=== PATIENT | female | born 1950 | race Caucasian/White ===

== ENCOUNTER 2019-03-17 09:03 | Emergency (ER) | payer MEDICARE, OTHER ==
--- OUTSIDE RECORDS SUMMARY | 2019-03-17 09:15 | XMS REPORT | Summary of Care ---
:1950 Author Organization [facility] Address [address] [facility] [address] [place] [address] Care Team Providers Name Role Phone Candace Beck Primary Care Provider Reason for Visit Reason Comments Injection flu Physical JENNIFER, mammo 01-11-19, dexa 04-11-13, colonoscopy 5 years ago, hx IBS. Encounter Details Date Type Department Care Team Description 02/08/2019 Office Visit [place] [facility] Candace Beck MD Routine general medical examination at a health care facility (Primary Dx); Medicine [address] Osteoporosis, unspecified osteoporosis type, unspecified pathological fracture presence [address] [place], [place] [id number] [place] [address] [phone] Allergies Active Allergy Reactions Severity Noted Date Comments Compazine Dermatologic Reaction 11/16/2014 rash documented as of this encounter (statuses as of 02/08/2019) Medications Medication Sig Dispensed Refills Start Date End Date Status escitalopram (LEXAPRO) Take 3 Tabs by 270 Tab 3 04/29/2018 Active 5 MG Oral mouth DAILY. TabIndications: Depression, unspecified depression type levothyroxine Take 1 Tab by 36 Tab 3 04/30/2018 Active (SYNTHROID) 125 MCG mouth EVERY MON, Oral Tab WED & THURSDAY. meclizine (ANTIVERT) 25 Take 1 Tab by 30 Tab 0 10/20/2018 Active MG Oral Tab mouth THREE TIMES DAILY NEEDED for dizziness/vertigo . levothyroxine TAKE 1 TABLET BY 45 Tab 3 12/15/2018 Active (SYNTHROID) 150 MCG MOUTH EVERY DAY Oral TabIndications: BEFORE BREAKFAST Other specified hypothyroidism documented as of this encounter (statuses as of 02/08/2019) Active Problems Problem Noted Date History of dysplastic nevus 10/27/2016 History of basal cell carcinoma 10/27/2016 Pain of right hand 06/19/2015 Lipid disorder 12/20/2014 Beni's thyroiditis 11/16/2014 S/P JENNIFER-BSO 11/16/2014 Overview: fibroid History of open sigmoidectomy 11/16/2014 Overview: IBD - documented as of this encounter (statuses as of 02/08/2019) Immunizations Name Administration Dates Next Due Influenza Vaccine 65 Yrs + 02/08/2019 Influenza Vaccine High Dose 02/16/2018, 04/16/2017 PNEUMOCOCCAL POLYSACCHARIDE VACCINE 11/14/2016 Pneumococcal Conjugate(13 Valent) 02/16/2018, 11/16/2014 documented as of this encounter Social History Tobacco Use Types Packs/Day Years Used Date Former Smoker Quit: 12/26/2009 Smokeless Tobacco: Never Used Alcohol Use Drinks/Week oz/Week Comments Yes 0 Standard drinks or equivalent 0.0 rare Sex Assigned at Date Recorded Not on file Job Start Date Occupation Industry Not on file Not on file Not on file Travel History Travel Start Travel End No recent travel history available. documented as of this encounter Last Filed Vital Signs Vital Sign Reading Time Taken Comments Blood Pressure 134/74 02/08/2019 10:04 AM EDT Pulse 71 02/08/2019 10:04 AM EDT Temperature - - Respiratory Rate - - Oxygen Saturation 97% 02/08/2019 10:04 AM EDT Inhaled Oxygen Concentration - - Weight 68.9 kg (152 lb) 02/08/2019 10:04 AM EDT Height 158.8 cm (5' 2.5") 02/08/2019 10:04 AM EDT Body Mass Index 27.36 02/08/2019 10:04 AM EDT documented in this encounter Patient Instructions Patient InstructionsCandace Beck MD - 02/08/2019 10:00 AM EDTHeart healthy lifestyle- Exercise- minimum of 40 min 4 x week- do some thing you like to do; strength and balance training -- Good night sleep - average person needs 8 hr Eat smart- watch cholesterol - dont overdo the carbs Smile!!!! Good spirit makes endorphins and all the rest work and worthwhile documented in this encounter Progress Notes Candace Beck MD - 02/08/2019 10:00 AM EDT PATIENT: Maria Teresa Mac DATE: 02/08/2019 Maria Teresa Mac is a 68-y.o. female presents for routine physical exam and Also , she has additionalcomplaints of 1. Stable weight / blood pressure - 2. Is active- . Patient Active Problem List Diagnosis Beni's thyroiditis S/P JENNIFER-BSO History of open sigmoidectomy Lipid disorder Pain of right hand History of dysplastic nevus History of basal cell carcinoma Exercize yes No BROCK. No cardiopulmonary symptoms as dyspnea, cough. palpitations , or chest pain on exertion. No upper or lower GI complaints as heartburn, abdominal pain, change in bowel habits, blackor bloody stools. No urinary tract symptoms or incontinence. No symptoms as nocturia, discharge No bruising/ bleeding. No neurological complaints as dysphagia, imbalance, vertigo , focal weakness. No insomnia.+ Rested after nights sleep. No depression. Does not stop breathing at night. Current Outpatient Medications Medication Sig escitalopram (LEXAPRO) 5 MG Oral Tab Take 3 Tabs by mouth DAILY. levothyroxine (SYNTHROID) 125 MCG Oral Tab Take 1 Tab by mouth EVERY THU , THU & THURSDAY. levothyroxine (SYNTHROID) 150 MCG Oral Tab TAKE 1 TABLET BY MOUTH EVERY DAY BEFORE BREAKFAST meclizine (ANTIVERT) 25 MG Oral Tab Take 1 Tab by mouth THREE TIMES DAILY NEEDED for dizziness/vertigo. No current facility-administered medications for this visit. Social History Socioeconomic History Marital status: Single Spouse name: Not on file Number of children: Not on file Years of education: Not on file Highest education level: Not on file Occupational History Not on file Social Needs Financial resource strain: Not on file Food insecurity: Worry: Not on file Inability: Not on file Transportation needs: Medical: Not on file Non-medical: Not on file Tobacco Use Smoking status: Former Smoker Last attempt to quit: 12/26/2009 Years since quittin.1 Smokeless tobacco: Never Used Substance and Sexual Activity Alcohol use: Yes Alcohol/week: 0.0 standard drinks Comment: rare Drug use: No Sexual activity: Not on file Lifestyle Physical activity: Days per week: Not on file Minutes per session: Not on file Stress: Not on file Relationships Social connections: Talks on phone: Not on file Gets together: Not on file Attends jew service: Not on file Active member of club or organization: Not on file Attends meetings of clubs or organizations: Not on file Relationship status: Not on file Intimate partner violence: Fear of current or ex partner: Not on file Emotionally abused: Not on file Physically abused: Not on file Forced sexual activity: Not on file Other Topics Concern Not on file Social History Narrative Worked in, 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[employer]" near [facility] ([place], [place]) Here with son and [id number] ; grandchild; Went to [place] Family History Problem Relation Age of Onset Cancer Mother 65 breast ca Breast Cancer Mother Cancer Father Breast Cancer Sister 70 Lab Results Component Value Date NA 141 10/20/2018 K 4.1 10/20/2018 CL 103 10/20/2018 CO2 28 10/20/2018 GLUCOSE 87 10/20/2018 BUN 22 (H) 10/20/2018 CREATININE 0.6 (L) 10/20/2018 CALCIUM 9.7 10/20/2018 TP 7.3 10/20/2018 ALBUMIN 4.3 10/20/2018 AST 33 10/20/2018 ALT 22 10/20/2018 ALK 58 10/20/2018 TBILI 0.3 10/20/2018 EGFR >60 10/20/2018 Lab Results Component Value Date WBC 7.88 10/20/2018 HGB 13.5 10/20/2018 HCT 41.4 10/20/2018 PLAT 315 10/20/2018 OBJECTIVE: BP 134/74 | Pulse 71 | Ht 5' 2.5" (1.588 m) | Wt 152 lb (68.9 kg) | SpO2 97 % | BMI 27.36 kg/m Gen well Heent: ears TM and canals normal eyes Perrl; EOMI oroph-wnl Neck- no JVD,thyromegaly, bruit or lymphademopathy No supraclavicular, axillary or inguinal lymphadenopathy Lungs-clear to auscultation CV RRR no Murmur, gallop or clilck Breasts-no masses or diimpling (examined supine and sitting) Abd. nontender; no organomegaly, abnormal pulsations , bowel sounds normoactive defer to age - Ext-no edema; rash, DP +2 skin- no rashes or suspicious lesions Neuro- intellect intact; CN II.XII intact; U&LE-strength wnl gait nl A/P ICD-9-CM ICD-10-CM 1. Routine general medical examination at a health care facility V70.0 Z00.00 2. Osteoporosis, unspecified osteoporosis type, unspecified pathological fracture presence 733.00 M81.0 XR DEXA SCAN 1 OR MORE SITES Breast self-exam and bone health recommendations were made Chief Complaint Patient presents with Injection flu Physical JENNIFER, mammo 01-11-19, dexa 04-11-13, colonoscopy 5 years ago, hx IBS. Mammo-- up to date Colon- 10 yr DT PAP aged out DEXA Up to date Patient Instructions Heart healthy lifestyle- Exercise- minimum of 40 min 4 x week- do some thing you like to do; strength and balance training -- Good night sleep - average person needs 8 hr Eat smart- watch cholesterol - dont overdo the carbs Smile!!!! Good spirit makes endorphins and all the rest work and worthwhile Author: Candace Beck MD documented in this encounter Plan of Treatment Name Type Priority Associated Diagnoses Order Schedule XR DEXA SCAN 1 OR Imaging Routine Osteoporosis, unspecified 1 Occurrences starting MORE SITES osteoporosis type, 02/08/2019 until unspecified pathological 02/08/2020 fracture presence Health Maintenance Due Date Last Done Comments ZOSTER IMMUNIZATION SERIES 06/29/1999 (1 of 2) MEDICARE ANNUAL WELLNESS 11/17/2015 11/16/2014 VISIT COLONOSCOPY SCREENING 08/25/2018 08/25/2013 INFLUENZA VACCINE (#1) 2018 02/16/2018, 04/16/2017 OSTEOPOROSIS SCREENING 04/27/2019 04/27/2009 DIABETES SCREENING 10/21/2019 10/20/2018, 01/14/2018, 10/23/2016, Additional history exists MAMMOGRAM (SCREENING) 01/12/2020 01/11/2019, 01/05/2018, 01/01/2017, Additional history exists DEPRESSION SCREENING 02/09/2020 02/08/2019 FALL RISK ASSESSMENT 02/09/2020 02/08/2019, 02/08/2019 LIPID DISORDER SCREENING 01/14/2023 01/14/2018, 06/25/2015, 12/13/2014 PNEUMOCOCCAL 65+YRS Completed 02/16/2018, 11/14/2016, 11/16/2014 HPV IMMUNIZATION SERIES Aged Out No longer eligible based on patient's age to complete this topic MENINGOCOCCAL VACCINE IMM Aged Out No longer eligible based on patient's age to complete this topic documented as of this encounter Procedures Procedure Name Priority Date/Time Associated Diagnosis Comments COLONOSCOPY Routine 01/25/2014 documented in this encounter Results COLONOSCOPY (01/25/2014) Pathologist [facility] Performing Organization Address City/State/[facility] Phone Number [facility] [address] [facility] [place] [address] documented in this encounter Visit Diagnoses Diagnosis Routine general medical examination at a health care facility - Primary Osteoporosis, unspecified osteoporosis type, unspecified pathological fracture presence documented in this encounter Insurance Payer Benefit Plan / Subscriber ID Effective Dates Phone Address Type Group UHC MEDICARE [employer] xxxxxxxxx 2016-Present [facility] ADVANTAGE MEDICARE ADVANTAGE Guarantor Name Account Type Relation to Date of Phone Billing Patient Address Maria Teresa Mac Personal/Family 1950 [address] (Home) [place], [place] [phone] [id number] (Work) documented as of this encounter
[2019-03-17] MEDS: Morphine INJ* 2 MG/ML 1 ML SYRINGE (TWO MG - NEW SYRINGE VERSION) IV ONE ×2 (10:15→11:44)
[2019-03-17] MEDS: NS 0.9% 1000 ML** 1,000 ML IV ONE (10:15)
--- NOTE | 2019-03-17 10:26 | ED ---
GI/ HPI - HPI Summary HPI Summary: 68-year-old male presents with left lower quadrant pain for the past day. She denies any nausea vomiting. No decreased appetite. She denies any diarrhea or constipation. Normal bowel movement today that did not change the pain. Does have a history of diverticulitis that required a colon resection. States she has not had issues with diverticulitis in many years. She denies any fevers. No chest pain shortness breath. No urinary symptoms. States she did have this pain a couple weeks ago but it has resolved. Has history of thyroid issues. - History of Current Complaint Chief Complaint: EDAbdPain Time Seen by Provider: 03/17/19 09:44 Stated Complaint: LEFT ABD PAIN Pain Intensity: 6 - Allergy/Home Medications Allergies/Adverse Reactions: Allergies Allergy/AdvReac Type Severity Reaction Status Date / Time prochlorperazine Allergy Rash Verified 03/17/19 12:02 Home Medications: Home Medications Escitalopram * [Lexapro 5 mg (NF)] 5 mg PO TID 03/17/19 [History Confirmed 03/17] PMH/Surg Hx/FS Hx/Imm Hx Endocrine/Hematology History: Reports: Hx Thyroid Disease - ON DAILY SYNTHROID Cardiovascular History: Denies: Hx Hypertension GI History: Reports: Hx Irritable Bowel - Hx- HAD SURGERY 2003, [place], Hx Ulcer - Hx OF.. MILD, NO CURRENT Sx Musculoskeletal History: Reports: Hx Arthritis - KNEES Comment Only: Other Musculoskeletal History - PSUDO GOUT Sensory History: Reports: Hx Contacts or Glasses - GLASSES Opthamlomology History: Reports: Hx Contacts or Glasses - GLASSES Psychiatric History: Reports: Hx Anxiety - ON DAILY MEDS - Cancer History Hx Chemotherapy: No Hx Radiation Therapy: No - Surgical History Surgery Procedure, Year, and Place: [address] [place] [address] [place]ERECTOMY [place]. [place]DECTOMY [place] Hx Anesthesia Reactions: No Infectious Disease History: No Infectious Disease History: Denies: Traveled Outside the [place] in Last 30 Days - Family History Known Family History: Positive: Non-Contributory - Social History Alcohol Use: Daily Alcohol Amount: 1 DRINK/DAILY Substance Use Type: Reports: None Smoking Status (MU): Former Smoker Amount Used/How Often: 1/2 PPD 25 YRS Have You Smoked in the Last Year: No Review of Systems Negative: Fever Negative: Chest Pain Negative: Shortness Of Breath Positive: Abdominal Pain. Negative: Vomiting, Diarrhea, Nausea All Other Systems Reviewed And Are Negative: Yes Physical Exam Triage Information Reviewed: Yes Vital Signs On Initial Exam: Initial Vitals Temp Pulse Resp BP Pulse Ox 97.9 F 83 16 145/91 96 03/17/19 09:04 03/17/19 09:04 03/17/19 09:04 03/17/19 09:04 03/17/19 09:04 Vital Signs Reviewed: Yes Appearance: Positive: Well-Appearing Skin: Positive: Warm, Dry Head/Face: Positive: Normal Head/Face Inspection Eyes: Positive: Normal, Conjunctiva Clear ENT: Positive: Pharynx normal Respiratory/Lung Sounds: Positive: Clear to Auscultation, Breath Sounds Present Cardiovascular: Positive: Normal, RRR Abdomen Description: Positive: Soft, Other: - tenderness in LLQ Bowel Sounds: Positive: Present Musculoskeletal: Positive: Normal Neurological: Positive: Normal Psychiatric: Positive: Normal Procedures - Sedation Patient Received Moderate/Deep Sedation with Procedure: No Diagnostics - Vital Signs Vital Signs Temp Pulse Resp BP Pulse Ox 03/17/19 10:15 16 165/77 03/17/19 09:04 97.9 F 83 16 145/91 96 - Laboratory Result Diagrams: 03/17/19 10:08 03/17/19 10:08 Lab Statement: Any lab studies that have been ordered have been reviewed, and results considered in the medical decision making process. - CT abd CT Interpretation Completed By: Radiologist Summary of CT Findings: IMPRESSION: 1. NO EVIDENCE FOR ACUTE FINDING. 2. HEPATIC STEATOSIS. 3. STATUS POST APPENDECTOMY AND HYSTERECTOMY. Re-Evaluation - Re-Evaluation First Eval Re-Evaluation Time: 11:21 Change: Improved Comment: feeling better but pain returned GIGU Course/Dx - Course Course Of Treatment: 68-year-old male presents with left lower quadrant pain for the past day. She denies any nausea vomiting. No decreased appetite. She denies any diarrhea or constipation. Normal bowel movement today that did not change the pain. Does have a history of diverticulitis that required a colon resection. States she has not had issues with diverticulitis in many years. She denies any fevers. No chest pain shortness breath. No urinary symptoms. States she did have this pain a couple weeks ago but it has resolved. Has history of thyroid issues. On exam tenderness in left lower quadrant. White blood count normal. crp normal. urine likely contaminant and patient denies uti sx at this time. ct abd shows no acute findings. states was bowling the day before pain started and may have pulled a muscle. will have follow up with primary. patient understand and agrees with plan. - Diagnoses Differential Diagnoses - Female: Colitis, Diverticulitis, Urinary Tract Infection Provider Diagnoses: Abdominal pain Discharge ED - Sign-Out/Discharge Documenting (check all that apply): Patient Departure - Discharge Plan Condition: Good Disposition: HOME Patient Education Materials: Acute Abdominal Pain (ED) Referrals: Candace Beck MD [Primary Care Provider] - Additional Instructions: Take Tylenol for pain as needed every 6 hours Follow up with primary within 5 days Return to ED if develop any new or worsening symptoms - Billing Disposition and Condition Condition: GOOD Disposition: Home
[2019-03-17 10:37] LABS: ABS Basophils 0.1 10^3/ul (0-0.2); ABS Eosinophils 0.1 10^3/ul (0-0.6); ABS Lymphocytes 1.3 10^3/ul (1.0-4.8); ABS Monocytes 0.3 10^3/ul (0-0.8); ABS Neutrophils 4.3 10^3/ul (1.5-7.7); Hematocrit 42 % (35-47); Hemoglobin 14.5 g/dL (12.0-16.0); Lymphocyte % 22.1 %; Mean Corpuscular HGB Conc 35 g/dL (31-36); Mean Corpuscular Hemoglobin 30 pg (27-31); Mean Corpuscular Volume 86 fL (80-97); Mean Platelet Volume 7.7 fL (7.4-10.4); Platelet Count 322 10^3/uL (150-450); Red Blood Count 4.86 10^6 /uL (3.70-4.87); Red Cell Distribution Width 13 % (10-15); White Blood Count 6.1 10^3/uL (3.5-10.8)
[2019-03-17 10:39] LABS: Urine Appearance Clear; Urine Bilirubin Negative (Negative); Urine Blood 1+ (Negative); Urine Color Yellow; Urine Glucose Negative (Negative); Urine Ketones Negative (Negative); Urine Nitrite Negative (Negative); Urine Protein Negative (Negative); Urine Specific Gravity 1.008 (1.010-1.030); Urine Urobilinogen Negative (Negative)
[2019-03-17 10:46] LABS: Urine Bacteria Absent (Absent); Urine Red Blood Cell Trace(0-2/hpf) (Absent); Urine Squamous Epithelial Cell Present (Absent); Urine White Blood Cell Trace(0-5/hpf) (Absent)
[2019-03-17 10:48] LABS: ALT 18 U/L (7-52); AST 18 U/L (13-39); Albumin 4.4 g/dL (3.2-5.2); Albumin/Globulin Ratio 1.6 (1-3); Alkaline Phosphatase 55 U/L (34-104); Anion Gap 6 mmol/L (2-11); BUN/Creatinine Ratio 27.4 (8-20); Blood Urea Nitrogen 17 mg/dL (6-24); C Reactive Protein < 1.00 mg/L (<8.01); CO2 Carbon Dioxide 29 mmol/L (22-32); Chloride 104 mmol/L (101-111); EGFR African American 115.5 (>60); EGFR Non-African American 95.4 (>60); Globulin 2.7 g/dL (2-4); Glucose 99 mg/dL (70-100); Potassium 4.6 mmol/L (3.5-5.0); Sodium 139 mmol/L (135-145); Total Protein 7.1 g/dL (6.4-8.9)
[2019-03-17] MEDS: Iohexol 300* (CONTRAST) 10 ML SDV IV ONE (12:42)
[2019-03-17 13:37] VITALS: BP 150/71
== END 2019-03-17 13:30 | disposition home or self-care (01) ==
LOC: ED 09:03
DX: R10.9 Unspecified abdominal pain (principal); E03.9 Hypothyroidism, unspecified; F41.9 Anxiety disorder, unspecified; Z87.891 Personal history of nicotine dependence; Z90.89 Acquired absence of other organs; Z90.710 Acquired absence of both cervix and uterus; Z79.890 Hormone replacement therapy; Z79.899 Other long term (current) drug therapy; Z88.8 Allergy status to other drugs, medicaments and biological substances
CPT/HCPCS: 36415; 74177; 80053; 81003; 81015; 83605; 83690; 85025; 86140; 87086; 96361; 96374; 96376; 99283; J2270; Q9967

== ENCOUNTER 2019-03-24 23:15 | Emergency (ER) | payer MEDICARE ==
[2019-03-24] MEDS ORDERED: Ondansetron INJ* 2 MG/ML VIAL IV ONE (23:49)
[2019-03-24] MEDS ORDERED: Ketorolac INJ* 30 MG/ML 1 ML VIAL IV PUSH ONE (23:49)
[2019-03-24] MEDS ORDERED: NS 0.9% 1000 ML** 1,000 ML IV ONE (23:49)
--- NOTE | 2019-03-25 00:10 | ED ---
Abdominal Pain/Female - HPI Summary HPI Summary: Patient is a 68 y/o F w/ Hx of diverticulitis and colon resection who presents to [facility] with chief complaint of LLQ abdominal pain. She states that she was at [facility] a week ago for similar issues. CT ABD/PEL and bloodwork were done and are reported to have been unremarkable. She followed up with her PCP who started her on a liquid diet. Patient was not started on antibiotics. She is to follow up with PCP tomorrow. Pain has been intermittent since onset and is characterized as a "pinching" and "like there's a big sore in there or something ". No fever, N/V/D, dysuria reported. Patient notes that her pain worsened after Thanksgiving dinner today, 03/24/19. She states that she had some similar pain previously with her diverticulitis but notes that the pain is in a different location. Patient states that she has been taking Tylenol 1000 mg every 4 hours with last dosage at 2200 03/24/19. PSHx of colon resection, appendectomy, and hysterectomy noted. She denies tobacco and substance usage but endorses some alcohol usage. On triage, pain is rated 8/10, nothing is noted to aggravate/alleviate Sx. Home medications and allergies are reviewed. - History of Current Complaint Chief Complaint: EDAbdPain Stated Complaint: ABD PAIN Time Seen by Provider: 03/24/19 23:46 Hx Obtained From: Patient Onset/Duration: Lasting Weeks, Still Present Timing: Weeks Severity Currently: Severe Pain Intensity: 8 Pain Scale Used: 0-10 Numeric Location: Discrete At: LLQ Aggravating Factor(s): Food Associated Signs and Symptoms: Negative: Fever, Urinary Symptoms, Nausea, Vomiting, Diarrhea Allergies/Adverse Reactions: Allergies Allergy/AdvReac Type Severity Reaction Status Date / Time prochlorperazine Allergy Rash Verified 03/24/19 23:20 Home Medications: Home Medications Levothyroxine TAB* [Synthroid TAB*] 125 mcg PO SEE INSTRUCTIONS 03/24/19 [ History Confirmed 03/24/19] PMH/Surg Hx/FS Hx/Imm Hx Endocrine/Hematology History: Reports: Hx Thyroid Disease - ON DAILY SYNTHROID Denies: Hx Diabetes Cardiovascular History: Denies: Hx Hypertension GI History: Reports: Hx Irritable Bowel - Hx- HAD SURGERY 2003, [place], Hx Ulcer - Hx OF.. MILD, NO CURRENT Sx History: Denies: Hx Renal Disease Musculoskeletal History: Reports: Hx Arthritis - KNEES Comment Only: Other Musculoskeletal History - PSUDO GOUT Sensory History: Reports: Hx Contacts or Glasses - GLASSES Opthamlomology History: Reports: Hx Contacts or Glasses - GLASSES Psychiatric History: Reports: Hx Anxiety - ON DAILY MEDS - Cancer History Hx Chemotherapy: No Hx Radiation Therapy: No - Surgical History Surgery Procedure, Year, and Place: [address] [place] [address] [place]STERECTOMY [place]. 1974 APPENDECTOMY [facility] Anesthesia Reactions: No Infectious Disease History: No Infectious Disease History: Denies: Traveled Outside the US in Last 30 Days - Family History Known Family History: Positive: Cardiac Disease Negative: Diabetes - Social History Alcohol Use: Rare Alcohol Amount: 1 DRINK/DAILY Substance Use Type: Reports: None Smoking Status (MU): Former Smoker Amount Used/How Often: 1/2 PPD 25 YRS Have You Smoked in the Last Year: No Review of Systems - ROS Summary Review of Systems Summary: Home Medications Medication Instructions Recorded Confirmed Type Levothyroxine TAB* [Synthroid 150 150 mcg PO SEE INSTRUCTIONS 09/23/13 03/24/19 History MCG TAB*] Escitalopram * [Lexapro 5 mg (NF)] 15 mg PO DAILY 03/17/19 03/24/19 History Levothyroxine TAB* [Synthroid TAB*] 125 mcg PO SEE INSTRUCTIONS 03/24/19 History Negative: Fever Positive: Abdominal Pain. Negative: Vomiting, Diarrhea, Nausea Negative: dysuria All Other Systems Reviewed And Are Negative: Yes Physical Exam - Summary Physical Exam Summary: General: Well-developed, Well-nourished female. No acute distress. HEENT: Normocephalic, Atraumatic. Eyes: Conjuctiva normal, PERRL. Ears: TMs within normal limits. Nares: (-) discharge, (-) erythema. Oropharynx: Clear, mucous membranes moist, (-) exudates. Neck: Soft, FROM, (-) lymphadenopathy, (-) thyromegaly, (-) JVD. Cardiovascular: Normal sinus rhythm, (-) murmur. Lungs: Clear to auscultation bilaterally (-) wheezes, (-) rales, (-) rhonchi. Abdomen: Soft, mild tenderness of left lateral abdomen, non-distended, (-) organomegaly, normal bowel sounds. Back: (-) CVA tenderness Extremities: No edema. Skin: Warm, dry, (-) rash. Neuro: Alert and oriented x3, no focal deficits. Psychiatric: Mood normal, affect normal. Triage Information Reviewed: Yes Vital Signs On Initial Exam: Initial Vitals Temp Pulse Resp BP Pulse Ox 97.0 F 70 18 116/114 98 03/24/19 23:20 03/24/19 23:20 03/24/19 23:20 03/24/19 23:20 03/24/19 23:20 Vital Signs Reviewed: Yes Procedures - Sedation Patient Received Moderate/Deep Sedation with Procedure: No Diagnostics - Vital Signs Vital Signs Temp Pulse Resp BP Pulse Ox 03/24/19 23:30 73 166/124 97 03/24/19 23:20 97.0 F 70 18 116/114 98 - Laboratory Result Diagrams: 03/25/19 00:17 03/25/19 00:17 Lab Statement: Any lab studies that have been ordered have been reviewed, and results considered in the medical decision making process. - CT ABD/PEL CT CT Interpretation Completed By: Radiologist Summary of CT Findings: IMPRESSION: No CT findings to correlate with patient's symptomatology. THIS REPORT WAS REVIEWED BY DR. WILLIAM. Abdominal Pain Fem Course/Dx - Course Course Of Treatment: 68 y/o F presents with abdominal pain for greater than one week. She was seen at [facility] a week ago with no significant findings on workup. She followed up with PCP. Patient did clear fluids diet for two days with no improvement of Sx. She was given toradol and morphine for pain. Workup is essentially negative although non-diagnostic. Patient was discharged to home with PCP follow-up. - Diagnoses Provider Diagnoses: Abdominal pain Discharge ED - Sign-Out/Discharge Documenting (check all that apply): Patient Departure - discharge - Discharge Plan Condition: Stable Disposition: HOME Patient Education Materials: Abdominal Pain (ED) Referrals: Candace Beck MD [Primary Care Provider] - 3 Days Additional Instructions: PLEASE RETURN TO ED FOR ANY NEW OR WORSENING SYMPTOMS. PLEASE FOLLOW UP WITH YOUR PRIMARY CARE PHYSICIAN WITHIN THREE DAYS. - Billing Disposition and Condition Condition: STABLE Disposition: Home - Attestation Statements Document Initiated by Scribe: Yes Documenting Scribe: TANJA CHAIREZ Provider For Whom Scribe is Documenting (Include Credential): JOMAR WILLIAM MD Scribe Attestation: I, TANJA CHAIREZ, scribed for JOMAR WILLIAM MD on 03/28/19 at 0244. Scribe Documentation Reviewed: Yes Provider Attestation: The documentation as recorded by the scribeTANJA accurately reflects the service I personally performed and the decisions made by me, JOMAR WILLIAM MD Status of Scribe Document: Viewed
[2019-03-25 00:26] LABS: ABS Basophils 0.1 10^3/ul (0-0.2); ABS Eosinophils 0.1 10^3/ul (0-0.6); ABS Lymphocytes 2.1 10^3/ul (1.0-4.8); ABS Monocytes 0.4 10^3/ul (0-0.8); ABS Neutrophils 2.6 10^3/ul (1.5-7.7); Eosinophil % 2.8 %; Hematocrit 41 % (35-47); Hemoglobin 13.4 g/dL (12.0-16.0); Lymphocyte % 38.9 %; Mean Corpuscular HGB Conc 33 g/dL (31-36); Mean Corpuscular Hemoglobin 29 pg (27-31); Mean Corpuscular Volume 87 fL (80-97); Mean Platelet Volume 7.2 fL (7.4-10.4); Nucleated Red Blood Cells % 0.1; Platelet Count 296 10^3/uL (150-450); Red Blood Count 4.67 10^6 /uL (3.70-4.87); Red Cell Distribution Width 13 % (10-15); White Blood Count 5.3 10^3/uL (3.5-10.8)
[2019-03-25 00:33] LABS: INR 0.92 (0.82-1.09)
[2019-03-25 00:41] LABS: ALT 24 U/L (7-52); AST 21 U/L (13-39); Albumin 4.4 g/dL (3.2-5.2); Albumin/Globulin Ratio 2.2 (1-3); Alkaline Phosphatase 54 U/L (34-104); Anion Gap 7 mmol/L (2-11); BUN/Creatinine Ratio 23.3 (8-20); Blood Urea Nitrogen 14 mg/dL (6-24); C Reactive Protein < 1.00 mg/L (<8.01); CO2 Carbon Dioxide 28 mmol/L (22-32); Calcium 9.6 mg/dL (8.6-10.3); Chloride 104 mmol/L (101-111); EGFR African American 119.9 (>60); EGFR Non-African American 99.1 (>60); Glucose 111 mg/dL (70-100); Potassium 3.7 mmol/L (3.5-5.0); Sodium 139 mmol/L (135-145); Total Protein 6.4 g/dL (6.4-8.9)
[2019-03-25 00:51] LABS: Urine Appearance Cloudy; Urine Bilirubin Negative (Negative); Urine Blood Negative (Negative); Urine Color Yellow; Urine Glucose Negative (Negative); Urine Ketones Negative (Negative); Urine Nitrite Negative (Negative); Urine Protein Negative (Negative); Urine Specific Gravity 1.012 (1.010-1.030); Urine Urobilinogen Negative (Negative)
[2019-03-25 01:07] LABS: Acetaminophen < 15 mcg/mL
[2019-03-25] MEDS ORDERED: Morphine INJ* 2 MG/ML 1 ML SYRINGE (TWO MG - NEW SYRINGE VERSION) IV PRN (01:45)
[2019-03-25] MEDS ORDERED: Iohexol 300* (CONTRAST) 10 ML SDV IV ONE (01:51)
[2019-03-25 03:34] VITALS: BP 161/83
--- OUTSIDE RECORDS SUMMARY | 2019-03-29 14:37 | XMS REPORT | Summary of Care ---
:1950 Author Organization [facility] Address [address] [address] Care Team Providers Name Role Phone Candace Beck Primary Care Provider Reason for Visit Reason Comments Follow Up after a dexa Transitional Care Management [facility] on for left sided flank pain Encounter Details Date Type Department Care Team Description 03/22/2019 Office Visit [place] [facility] Candace Beck MD Abdominal pain, unspecified abdominal location (Primary Dx); Medicine [address] [facility] Osteopenia, unspecified location [address] [place], [place] [id number] [place] [address] [phone] Allergies Active Allergy Reactions Severity Noted Date Comments Compazine Dermatologic Reaction 11/16/2014 rash documented as of this encounter (statuses as of 03/22/2019) Medications Medication Sig Dispensed Refills Start Date End Date Status escitalopram (LEXAPRO) Take 3 Tabs by 270 Tab 3 04/29/2018 Active 5 MG Oral mouth DAILY. TabIndications: Depression, unspecified depression type levothyroxine Take 1 Tab by 36 Tab 3 04/30/2018 Active (SYNTHROID) 125 MCG mouth EVERY MON, Oral Tab THU & THURSDAY. meclizine (ANTIVERT) 25 Take 1 Tab by 30 Tab 0 10/20/2018 Active MG Oral Tab mouth THREE TIMES DAILY NEEDED for dizziness/vertigo . levothyroxine TAKE 1 TABLET BY 45 Tab 3 12/15/2018 Active (SYNTHROID) 150 MCG MOUTH EVERY DAY Oral TabIndications: BEFORE BREAKFAST Other specified hypothyroidism documented as of this encounter (statuses as of 03/22/2019) Active Problems Problem Noted Date History of dysplastic nevus 10/27/2016 History of basal cell carcinoma 10/27/2016 Pain of right hand 06/19/2015 Lipid disorder 12/20/2014 Beni's thyroiditis 11/16/2014 S/P JENNIFER-BSO 11/16/2014 Overview: fibroid History of open sigmoidectomy 11/16/2014 Overview: IBD - documented as of this encounter (statuses as of 03/22/2019) Immunizations Name Administration Dates Next Due Influenza [...] Sign Reading Time Taken Comments Blood Pressure 152/96 03/22/2019 2:54 PM EST Pulse 74 03/22/2019 2:54 PM EST Temperature - - Respiratory Rate - - Oxygen Saturation 96% 03/22/2019 2:54 PM EST Inhaled Oxygen Concentration - - Weight 69.5 kg (153 lb 4.8 oz) 03/22/2019 2:54 PM EST Height 158.8 cm (5' 2.5") 03/22/2019 2:54 PM EST Body Mass Index 27.59 03/22/2019 2:54 PM EST documented in this encounter Patient Instructions Patient InstructionsCandace Beck MD - 03/22/2019 2:40 PM ESTBone health: 1. Take 1000- mg of Calcium/day divided dose and with a meal (better absorbed with fat ( calcium best out of The diet - Dairy - [place] ( in the can best) sardines) some vegetables -For example cabbage and partcularly bok ortiz 2. Take 800- IU Vit D in the form of cholecalficerol (D3). Avoid ergocalciferol (not absorbed well) 3. Weight bearing exercize (walking, etc.) and strength training 4. Daily exposure to sunlight (though not enought to turn skin pink) 5. I recommend visiting the following web site for more information on Vit D supplementation [email or web address].[email or web address] Diet advice for diverticulitis > Treatment with the diet aspect of diverticulitis only - A diverticulitis diet can't treat or prevent diverticulitis. Rather, it's intended to give your digestive system a chance to rest. A diverticulitis diet is typically recommended along with antibiotics for mild or uncomplicated cases of diverticulitis. Diet details A diverticulitis diet starts with only clear liquids for a few days. Examples of beverages allowed on a clear liquid diet include: Broth Clear soda Fruit juices without pulp, such as apple or grape juice Ice chips Ice pops without bits of fruit or fruit pulp Plain gelatin Plain water Tea or coffee without cream As you start feeling better, your doctor will recommend that you slowly add low- fiber foods. Examples of low-fiber foods include: Canned or cooked fruits without skin or seeds Canned or cooked vegetables such as green beans, peas and potatoes (without the skin) Eggs, fish and poultry Refined wheat and white bread Fruit juice with little or no pulp Low-fiber cereals Milk, low-fat yogurt and cheese White rice, pasta and noodles Results You should feel better within two or three days of starting the diet and antibiotics. If you haven'tstarted feeling better by then, call your doctor. You should also contact your doctor if: You develop a fever Your abdominal pain is worsening You're unable to keep clear liquids down These may indicate a complication that requires hospitalization When you are feeling better you can slowly start increasing the fiber in your diet; Eventually we think a high fiber diet is healthy for people with diverticular pockets in their bowel. documented in this encounter Progress Notes Candace Beck MD - 03/22/2019 2:40 PM EST NAME:Maria Teresa Mac 1950: 1950 ENC Date: 03/22/2019 CC: Chief Complaint Patient presents with Follow Up after a dexa Transitional Care Management [facility] on for left sided flank pain Maria Teresa Mac is a 68-y.o. female See in the ER at [facility] for abdominal pain ( LLQpain x 1 day) No nausea or vomiting - Had been constipated- No diagnosis made Work up included ct scan abdomen/ blood work All normal Continues to have pain in the left upper quandrant - No fever or chills / bowels are ok - Is a bit better - has changed diet - Took some maalox - But relying on actetamonphen - 2. Review of dxa- Borderline osteopenia / normal - No omparison Advice given - Current Outpatient Medications Medication Sig escitalopram (LEXAPRO) [...] No current facility-administered medications for this visit. Patient Active Problem List Diagnosis Date Noted History of dysplastic nevus 10/27/2016 History of basal cell carcinoma 10/27/2016 Pain of right hand 06/19/2015 Lipid disorder 12/20/2014 Beni's thyroiditis 11/16/2014 S/P JENNIFER-BSO 11/16/2014 fibroid History of open sigmoidectomy 11/16/2014 IBD - Family History Problem Relation Age of Onset Cancer Mother 65 breast ca Breast Cancer Mother Cancer Father Breast Cancer Sister 70 No cardiopulmonary symptoms No upper or lower GI complaints No urinary tract symptoms. No bruising/ bleeding. No neurological complaints . No insomnia.+ . Social History Tobacco Use Smoking status: Former Smoker Last attempt to quit: 12/26/2009 Years since quittin.2 Smokeless tobacco: Never Used Substance Use Topics Alcohol use: Yes Alcohol/week: 0.0 standard drinks Comment: rare Drug use: No OBJECTIVE: BP (!) 152/96 | Pulse 74 | Ht 5' 2.5" (1.588 m) | Wt 153 lb 4.8 oz (69.5 kg) | SpO2 96% | BMI 27.59 kg/m . Heent neg Lungs Clear CV rrr Abd soft, lcalizied tender to palpation over the mid left anteror flank Ext no edema; no lesions; pulses intact Neuro: intellect intact ; motor including gait unremarkable A/P ICD-9-CM ICD-10-CM 1. Abdominal pain, unspecified abdominal location 789.00 R10.9 2. Osteopenia, unspecified location 733.90 M85.80 Abdominal pain - mild - Will treatment with diverticultis diet - but not antibiotic- Patient willfollow up short interval 2. Good bones - dxa reviewed Usual advice - Patient Instructions Bone health: 1. Take 1000- mg of Calcium/day divided dose and with a meal ( better absorbed with fat ( calcium best out of The diet - Dairy - [place] ( in the can best) sardines) some vegetables -For example cabbage and partcularly bok ortiz 2. Take 800- IU Vit D in the form of cholecalficerol (D3). Avoid ergocalciferol (not absorbed well) 3. Weight bearing exercize (walking, etc.) and strength training 4. Daily exposure to sunlight (though not enought to turn skin pink) 5. I recommend visiting the following web site for more information on Vit D supplementation http://www.[email or web address].[email or web address] Diet advice for diverticulitis > Treatment with the diet aspect of diverticulitis only - A diverticulitis diet can't treat or prevent diverticulitis. Rather, it's intended to give your digestive system a chance to rest. A diverticulitis diet is typically recommended along with antibiotics for mild or uncomplicated cases of diverticulitis. Diet details A diverticulitis diet starts with only clear liquids for a few days. Examples of beverages allowed on a clear liquid diet include: Broth Clear soda Fruit juices without pulp, such as apple or grape juice Ice chips Ice pops without bits of fruit or fruit pulp Plain gelatin Plain water Tea or coffee without cream As you start feeling better, your doctor will recommend that you slowly add low- fiber foods. Examples of low-fiber foods include: Canned or cooked fruits without skin or seeds Canned or cooked vegetables such as green beans, peas and potatoes (without the skin) Eggs, fish and poultry Refined wheat and white bread Fruit juice with little or no pulp Low-fiber cereals Milk, low-fat yogurt and cheese White rice, pasta and noodles Results You should feel better within two or three days of starting the diet and antibiotics. If you haven'tstarted feeling better by then, call your doctor. You should also contact your doctor if: You develop a fever Your abdominal pain is worsening You're unable to keep clear liquids down These may indicate a complication that requires hospitalization When you are feeling better you can slowly start increasing the fiber in your diet; Eventually we think a high fiber diet is healthy for people with diverticular pockets in their bowel. AUTHOR: Candace Beck MD 15:31 03/22/2019 documented in this encounter Plan of Treatment Health Maintenance Due Date Last Done Comments ZOSTER IMMUNIZATION SERIES 06/29/1999 (1 of 2) MEDICARE ANNUAL WELLNESS 11/17/2015 11/16/2014 VISIT Colonoscopy 01/25/2019 01/25/2014, 08/25/2013 OSTEOPOROSIS SCREENING 04/27/2019 04/27/2009 DIABETES SCREENING 10/21/2019 10/20/2018, 01/14/2018, 10/23/2016, Additional history exists MAMMOGRAM (SCREENING) 01/12/2020 01/11/2019, 01/05/2018, 01/01/2017, Additional history exists DEPRESSION SCREENING 02/09/2020 02/08/2019 FALL RISK ASSESSMENT 02/09/2020 02/08/2019, 02/08/2019 LIPID DISORDER SCREENING 01/14/2023 01/14/2018, 06/25/2015, 12/13/2014 PNEUMOCOCCAL 65+YRS Completed 02/16/2018, 11/14/2016, 11/16/2014 INFLUENZA VACCINE Completed 02/08/2019, 02/16/2018, 04/16/2017 HPV IMMUNIZATION SERIES Aged Out No longer eligible based on patient's age to complete this topic MENINGOCOCCAL VACCINE IMM Aged Out No longer eligible based on patient's age to complete this topic documented as of this encounter Results Not on filedocumented in this encounter Visit Diagnoses Diagnosis Abdominal pain, unspecified abdominal location - Primary Osteopenia, unspecified location documented in this encounter Insurance Payer Benefit Plan / Subscriber ID Effective Dates Phone Address Type Group [employer] MEDICARE [employer] xxxxxxxxx 2016-Present [facility] [employer]VANTAGE (Home) [place], [place] [phone] [id number] (Work) documented as of this encounter
== END 2019-03-25 03:33 | disposition home or self-care (01) ==
LOC: ED 23:15
DX: R10.9 Unspecified abdominal pain (principal); E03.9 Hypothyroidism, unspecified; F41.9 Anxiety disorder, unspecified; Z87.891 Personal history of nicotine dependence; Z79.890 Hormone replacement therapy; Z79.899 Other long term (current) drug therapy; Z90.89 Acquired absence of other organs; Z90.710 Acquired absence of both cervix and uterus; Z88.8 Allergy status to other drugs, medicaments and biological substances
CPT/HCPCS: 36415; 74177; 80053; 80329; 81003; 83605; 83690; 85025; 85610; 86140; 87040; 96361; 96374; 96375; 99283; G0480; J1885; J2270; Q9967